=== PATIENT | female | born 1950 | race Caucasian/White ===

== ENCOUNTER 2022-10-18 12:20 | Inpatient (IN) | payer OTHER, BC ==
[2022-10-18] MEDS ORDERED: PIPERACILLIN/TAZOB 4.5 GM 4.5 GM in DEXTROSE 5%-WATER 100 ML IVPB ONE (14:04)
[2022-10-18] MEDS ORDERED: CEFTRIAXONE 1,000 MG in DEXTROSE 5%-WATER - 50 ML IVPB ONE (14:05)
[2022-10-18 14:10] LABS: VENOUS BASE EXCESS 1.6 mmol/L (-2-2); VENOUS O2 SATURATION 77.7 % (70-80); VENOUS PCO2 44.4 mmHg (38-52); VENOUS PH 7.399 (7.310-7.410)
[2022-10-18 14:14] LABS: HEMATOCRIT 37.2 % (32.4-45.2); HEMOGLOBIN 12.7 GM/dL (10.7-15.3); MCH 28.2 pg (25.7-33.7); MCHC 34.2 g/dl (32.0-36.0); MEAN CELL VOLUME 82.5 fl (80-96); MEAN PLT VOLUME 8.5 fl (7.5-11.1); PLATELET COUNT 264 10^3/uL (134-434); RBC 4.51 M/mm3 (3.60-5.2); RDW 14.9 % (11.6-15.6); WHITE BLOOD COUNT 12.4 K/mm3 (4.0-10.0)
[2022-10-18] MEDS ORDERED: DOXYCYCLINE INJECTION 100 MG in DEXTROSE 5%-WATER 100 ML IVPB ONE (14:16)
[2022-10-18] MEDS ORDERED: CEFTRIAXONE 1 GM/50 ML BAG ONE (14:16)
[2022-10-18] MEDS ORDERED: methylPREDNISolone NA SUCC 125 MG/2 ML VIAL IVPUSH ONE (14:17)
[2022-10-18 14:21] LABS: INR 1.27 (0.83-1.09); PROTHROMBIN TIME (PATIENT) 14.7 SEC (9.7-13.0)
[2022-10-18] MEDS: ALBUTEROL SO4 2.5/IPRATROPIUM 0.5 INH SOL 3 ML VIAL.NEB. NEB SCH ×3 (14:22→14:52)
[2022-10-18] MEDS ORDERED: DEXTROSE 5%-WATER 100 ML IVPB ONE (14:23)
[2022-10-18] MEDS ORDERED: DOXYCYCLINE HYCLATE 100 MG VIAL ONE ×2 (14:23→21:56)
[2022-10-18] MEDS ORDERED: methylPREDNISolone NA SUCC 125 MG/2 ML VIAL ONE (14:24)
[2022-10-18 14:27] LABS: BLOOD UREA NITROGEN 12.6 mg/dL (7-18); CALCIUM 8.7 mg/dL (8.5-10.1)
[2022-10-18 14:28] LABS: ALBUMIN 3.1 g/dl (3.4-5.0)
[2022-10-18 14:31] LABS: CREATININE 0.6 mg/dL (0.55-1.3)
[2022-10-18 14:32] LABS: BILIRUBIN,TOTAL 0.6 mg/dL (0.2-1); TOT PROT 6.7 g/dl (6.4-8.2)
[2022-10-18 14:51] LABS: PH,URINE 6.5 (5.0-8.0); URINE APPEARANCE CLEAR; URINE BILIRUBIN NEGATIVE (NEGATIVE); URINE COLOR YELLOW; URINE GLUCOSE (UA) NEGATIVE (NEGATIVE); URINE KETONE TRACE (NEGATIVE); URINE LEUK ESTERASE NEGATIVE (NEGATIVE); URINE NITRITE NEGATIVE (NEGATIVE); URINE PROTEIN NEGATIVE (NEGATIVE); URINE UROBILINOGEN 0.2 mg/dL (0.2-1.0)
[2022-10-18 14:56] LABS: EPI CELLS 5 /uL (0-25.1); HYALINE CASTS 0.25 /uL (0-3.1); URINE BACTERIA 55 /uL (0-1359); URINE RBC 14 /uL (0-23.9); URINE WBC 4 /uL (0-25.8)
[2022-10-18 15:02] LABS: ANISOCYTOSIS 3+; MACROCYTOSIS 1+
[2022-10-18] MEDS: DOXYCYCLINE INJECTION 100 MG in DEXTROSE 5%-WATER 100 ML IVPB SCH (22:05)
[2022-10-19] MEDS ORDERED: ALBUTEROL SO4 0.083% IH SOL 2.5 MG/3 ML VIAL.NEB. NEB ONE (00:38)
[2022-10-19] MEDS: ALBUTEROL SO4 0.083% IH SOL 2.5 MG/3 ML VIAL.NEB. NEB PRN ×2 (00:41→09:17)
[2022-10-19 03:19] VITALS: BMI 22.6
[2022-10-19] MEDS: DOXYCYCLINE INJECTION 100 MG in DEXTROSE 5%-WATER 100 ML IVPB SCH ×2 (09:57→21:24)
[2022-10-19 10:00] LABS: BASO % 0.1 % (0-2.0); HEMATOCRIT 36.3 % (32.4-45.2); HEMOGLOBIN 12.6 GM/dL (10.7-15.3); LYMPH % 5.2 % (8-40); MCH 28.8 pg (25.7-33.7); MCHC 34.6 g/dl (32.0-36.0); MEAN CELL VOLUME 83.1 fl (80-96); MEAN PLT VOLUME 9.3 fl (7.5-11.1); MONO % 4.5 % (3.8-10.2); NEUT % 90.2 % (42.8-82.8); PLATELET COUNT 302 10^3/uL (134-434); RBC 4.37 M/mm3 (3.60-5.2); RDW 14.7 % (11.6-15.6); WHITE BLOOD COUNT 9.5 K/mm3 (4.0-10.0)
[2022-10-19] MEDS ORDERED: predniSONE 20 MG TABLET (UD) PO ONE (10:00)
[2022-10-19 10:19] LABS: CHLORIDE 100 mmol/L (98-107); SODIUM 136 mmol/L (136-145)
[2022-10-19 10:20] LABS: CALCIUM 9.3 mg/dL (8.5-10.1)
[2022-10-19 10:21] LABS: ANION GAP 7 MMOL/L (8-16); BLOOD UREA NITROGEN 21.9 mg/dL (7-18); CO2 29 mmol/L (21-32)
[2022-10-19 10:24] LABS: CREATININE 0.8 mg/dL (0.55-1.3)
[2022-10-19 10:29] LABS: GLUCOSE,RANDOM 418 mg/dL (74-106)
[2022-10-19] MEDS: CEFTRIAXONE 1 GM in DEXTROSE 5%-WATER - 50 ML IVPB SCH (11:23)
[2022-10-19 13:02] LABS: ERYTHROCYTE SEDIMENTATION RATE 92 mm/hr (0-30)
[2022-10-20 08:53] LABS: HEMATOCRIT 37.1 % (32.4-45.2); HEMOGLOBIN 12.6 GM/dL (10.7-15.3); MCH 28.1 pg (25.7-33.7); MEAN CELL VOLUME 82.6 fl (80-96); MEAN PLT VOLUME 8.6 fl (7.5-11.1); PLATELET COUNT 401 10^3/uL (134-434); RBC 4.49 M/mm3 (3.60-5.2); WHITE BLOOD COUNT 14.8 K/mm3 (4.0-10.0)
[2022-10-20 09:30] LABS: ALBUMIN 2.8 g/dl (3.4-5.0); PHOSPHOROUS 2.7 mg/dL (2.5-4.9)
[2022-10-20 09:31] LABS: BLOOD UREA NITROGEN 23.6 mg/dL (7-18); CALCIUM 9.5 mg/dL (8.5-10.1)
[2022-10-20 09:32] LABS: BILIRUBIN,TOTAL 0.4 mg/dL (0.2-1); MAGNESIUM 2.3 mg/dL (1.8-2.4); TOT PROT 6.4 g/dl (6.4-8.2)
[2022-10-20 09:33] LABS: CREATININE 0.7 mg/dL (0.55-1.3)
[2022-10-20] MEDS ORDERED: predniSONE 20 MG TABLET (UD) PO SCH (10:30)
[2022-10-20 11:16] LABS: ANISOCYTOSIS 0; HELMET CELLS 0; HOWELL-JOLLY BODIES 0; MACROCYTOSIS 0; OVALOCYTE 0; ROULEAU 0; SICKELED CELLS 0; TARGET CELLS 0; TEAR DROP CELLS 0; TOXIC GRANULATION 0
[2022-10-20] MEDS: CEFTRIAXONE 1 GM in DEXTROSE 5%-WATER - 50 ML IVPB SCH (11:20)
[2022-10-20] MEDS: DOXYCYCLINE INJECTION 100 MG in DEXTROSE 5%-WATER 100 ML IVPB SCH (11:47)
[2022-10-20] MEDS ORDERED: DOXYCYCLINE INJECTION 100 MG in DEXTROSE 5%-WATER 100 ML IVPB ONE (12:01)
[2022-10-20 14:33] VITALS: BP 106/59; PULSE 92; RESP 18; TEMP 99.1
[2022-10-20] MEDS ORDERED: FLUTICASONE PROP 0.05% 16 GM NASAL SPRAY NS SCH (15:30)
[2022-10-22 16:08] LABS: ATYPICAL pANCA <1:20 titer (Neg:<1:20); C-ANCA <1:20 titer (Neg:<1:20)
== END 2022-10-20 18:03 | disposition home or self-care (01) | DRG 194 ==
LOC: JER 12:20 → JERBED 17:44 → UNDOADMIN 17:44 → JERBED 18:00 → INTOOBSV 18:00 → JERBED 10-19 02:59 → J6S 10-19 03:01 → OBSVTOIN 10-19 10:29
PROVIDERS: ADMIT Internal Medicine; ATTEND Internal Medicine
DX: J18.9 Pneumonia, unspecified organism (principal); J45.901 Unspecified asthma with (acute) exacerbation; J47.0 Bronchiectasis with acute lower respiratory infection; R09.02 Hypoxemia; J47.9 Bronchiectasis, uncomplicated; R73.9 Hyperglycemia, unspecified
CPT/HCPCS: 0241U-QW; 36415; 71045-TC-FY; 71250-TC; 80048; 80053; 81003; 82803; 83036; 83520; 83605; 83735; 84100; 84484; 85025; 85610; 85651; 85730; 86140; 86256; 87040; 87086; 87899; 93005; 93010; 94640; 94761; 99285-25; G0378